=== PATIENT | female | born 1995 | race Caucasian/White ===

== ENCOUNTER 2018-09-10 19:58 | Emergency (ER) | payer OTHER ==
[2018-09-10] MEDS: NORCO 5/325MG TABLET (BULK FOR ED) PO (21:00)
== END 2018-09-10 21:11 | disposition home or self-care (01) ==
LOC: M ED 19:58
DX: S43.52XA Sprain of left acromioclavicular joint, initial encounter (principal); W01.0XXA Fall on same level from slipping, tripping and stumbling without subsequent striking against object, initial encounter; Y92.830 Public park as the place of occurrence of the external cause; Y93.23 Activity, snow (alpine) (downhill) skiing, snowboarding, sledding, tobogganing and snow tubing; Z91.013 Allergy to seafood
CPT/HCPCS: 73060

== ENCOUNTER → 2018-11-26 | Outpatient (REF) | payer OTHER ==
[~2018-11-26] MED LIST: IBUP-1022 PO; NORCOTAB PO
== END ==
LOC: M SFHCLERA 20:44
PROVIDERS: ATTEND Physician Assistant
DX: R50.9 Fever, unspecified (principal)

== ENCOUNTER → 2019-04-17 | Outpatient (CLI) | payer OTHER ==
[~2019-04-17] MED LIST changes: +HYDR-3715 PO; -NORCOTAB PO
[2019-04-17 14:24] LABS: HEPATITIS C VIRUS ABY INDEX 0.1 INDEX (<0.8); HIV 1&2 SCREEN CENTAUR NEGATIVE (NEGATIVE)
[2019-04-17 15:39] LABS: CHLAMYDIA DNA AMPLIFICATION NEGATIVE (NEGATIVE); GC DNA AMPLIFICATION NEGATIVE (NEGATIVE)
== END ==
LOC: M SMT 09:08
PROVIDERS: ATTEND Advanced Practice Midwife
DX: Z34.02 Encounter for supervision of normal first pregnancy, second trimester (principal); Z3A.00 Weeks of gestation of pregnancy not specified
CPT/HCPCS: 36415; 86803; 87389; 87491; 87591; G0123

== ENCOUNTER → 2019-05-13 | Outpatient (CLI) | payer OTHER ==
--- NOTE | 2019-05-13 15:14 | REP ---
REASON: anatomy. Multiple ultrasonographic images of the gravid uterus show a single living intrauterine gestation in variable positions. Doppler interrogation of the heart showed a heart rate of 153 beats per minute. The placenta is anterior and not low lying. The subjective amniotic fluid volume is within normal limits. The cervix measures 4.7 cm in length and is closed. Evaluation of the maternal adnexal spaces showed no abnormalities. BPD 4.3 cm = 19 weeks 1 day HC 16.0 cm = 18 weeks 6 days AC 14.3 cm = 19 weeks 5 days FL 3.1 cm = 19 weeks 4 days The estimated weight is 299 grams which is at the 52nd percentile for a 19 week 6 days gestational age. The structures seen as unremarkable are as follows: Thalami, cavum septum pellucidum, cerebellum, cisterna magna, facial features, kidneys, urinary bladder, stomach, cord insertion, three vessel umbilical cord, four chamber heart, right and left ventricular outflow tracts, and upper and lower extremities. The spine was seen suboptimally due to the lie. IMPRESSION: Single living intrauterine gestation as described above with an estimated gestational age of 19 weeks 1 day via composite criteria and an estimated date of delivery of 10/06/2019. No anomalies were detected, however, I recommend a followup examination for better evaluation of the spine. Electronically Signed by Ozzie Ortiz DO 05/13/2019 04:49 P
== END ==
LOC: M RAD 11:44
PROVIDERS: ATTEND Advanced Practice Midwife
DX: Z34.02 Encounter for supervision of normal first pregnancy, second trimester (principal); Z3A.19 19 weeks gestation of pregnancy

== ENCOUNTER → 2019-05-28 | Outpatient (CLI) | payer OTHER ==
[~2019-05-28] MED LIST changes: +MAGN250T7 PO; +PRENTAB9 PO
--- NOTE | 2019-05-29 11:59 | REP ---
Clinical: Anatomical evaluation. Comparison: 05/13/2019 . Findings: Examination demonstrates a single live intrauterine in cephalic presentation. motion is identified by technologist. Placenta is noted anterior and grade one without evidence for placenta previa or abruption. Amniotic fluid volume is normal. Cervix measures 3.2 cm in length and appears closed. No evidence for nuchal cord. Gestational age by LMP 21 weeks 4 days with RELL 10/04/2019 . Gestational age by current measurements 21 weeks 3 days with RELL 10/05/2019 . FHR equals 144 beats per minute. Estimated weight 429 grams ( 43rd percentile). Anatomical assessment demonstrates normal structures including cranium, choroid plexus, cavum, cerebellum/posterior fossa, lungs, diaphragm, stomach, cord insertion/three-vessel cord, kidneys/bladder, spine, and extremities. Impression: Single live intrauterine in cephalic presentation demonstrating appropriate interval growth. In conjunction with prior examination anatomical assessment is complete and normal. Electronically Signed by Jovan Tran MD 05/29/2019 03:42 A
== END ==
LOC: M RAD 11:37
PROVIDERS: ATTEND Advanced Practice Midwife
DX: Z34.02 Encounter for supervision of normal first pregnancy, second trimester (principal); Z3A.21 21 weeks gestation of pregnancy

== ENCOUNTER → 2019-06-12 | Outpatient (CLI) | payer OTHER ==
[~2019-06-12] MED LIST changes: -MAGN250T7 PO; -PRENTAB9 PO
[2019-06-12 15:30] LABS: HEMATOCRIT 37.1 % (36.0-47.0); HEMOGLOBIN 12.4 g/dl (12.0-15.5); MEAN CORPUSCULAR HEMOGLOBIN 30.8 pg (27.0-33.0); MEAN CORPUSCULAR HGB CONC 33.4 g/dl (32.0-36.5); MEAN CORPUSCULAR VOLUME 92.1 fl (80.0-96.0); PLATELET COUNT, AUTOMATED 361 10^3/uL (150-450); RED BLOOD COUNT 4.03 10^6/uL (4.00-5.40); WHITE BLOOD COUNT 14.2 10^3/uL (4.0-10.0)
== END ==
LOC: M LAB 13:20
PROVIDERS: ATTEND Obstetrics & Gynecology
DX: Z34.82 Encounter for supervision of other normal pregnancy, second trimester (principal); Z36.89 Encounter for other specified antenatal screening

== ENCOUNTER 2019-07-16 21:02 | Outpatient (CLI) | payer OTHER ==
[~2019-07-16] VITALS: Ht 170.2 cm; Wt 68.4 kg
[2019-07-16 21:20] VITALS: BP 107/65
[2019-07-16] MEDS ORDERED: MAGN250T7 PO (21:25)
[2019-07-16] MEDS ORDERED: PRENTAB9 PO (21:25)
[2019-07-16 21:30] VITALS: BP 59/35
[2019-07-16 21:31] VITALS: BP 54/34
[2019-07-16 21:32] VITALS: BP 86/48
[2019-07-16 21:41] VITALS: BP 92/55
== END 2019-07-16 23:45 | disposition home or self-care (01) ==
LOC: M LDO 21:02
PROVIDERS: ATTEND Obstetrics & Gynecology
DX: O26.893 Other specified pregnancy related conditions, third trimester (principal); R10.9 Unspecified abdominal pain; Z3A.28 28 weeks gestation of pregnancy
CPT/HCPCS: 59025; G0378; G0463

== ENCOUNTER → 2019-09-05 | Outpatient (REF) | payer OTHER ==
[~2019-09-05] MED LIST changes: +MAGN250T7 PO; +PRENTAB9 PO
== END ==
LOC: M SFHCWAGY 13:36
PROVIDERS: ATTEND Advanced Practice Midwife
DX: Z36.85 Encounter for antenatal screening for Streptococcus B (principal)

== ENCOUNTER → 2019-09-06 | Outpatient (CLI) | payer OTHER | LOC: M LAB 15:24 | PROVIDERS: ATTEND Advanced Practice Midwife | DX: Z34.93 Encounter for supervision of normal pregnancy, unspecified, third trimester (principal); Z3A.00 Weeks of gestation of pregnancy not specified ==

== ENCOUNTER → 2019-09-06 | Outpatient (CLI) | payer OTHER ==
--- NOTE | 2019-09-06 16:18 | REP ---
OB ULTRASOUND: Real-time sonographic evaluation of the gravid uterus is performed. There is a single living intrauterine gestation. The estimated gestational age is 36 weeks 0 days. EDC 10/04/2019. Today's measurements indicate appropriate growth. BPD 87 mm = 35 weeks 0 days, at the 35th percentile. HC 330 mm = 37 weeks 4 days, at the 75th percentile. AC 326 mm = 36 weeks 4 day, at the 58th percentile. Femur length 67 mm = 34 weeks 4 days, at the 29th percentile. HC/AC ratio 1.01 within normal range. Estimated weight 2811 grams, 50th percentile. Cervix is closed and measures 2.9 cm. Cervix is closed and measures 2.9 cm in length. heart rate 128 beats per minute. Amniotic fluid within normal limits, JAMES 12.7 within normal range of 7.7 to 24.9. SD ratio 2.38 within normal range of 2.0 to 3.0. RI 0.58 slightly below normal range 0.59-0.75. Visualized anatomy today includes lateral ventricles, posterior fossa, upper lip, four chamber heart, left ventricular outflow tract, stomach, cord insertion, three vessel cord, kidneys, bladder and spine which were all grossly unremarkable. position is vertex. Placenta is anterior and grade 2 with no previa or abruption. IMPRESSION: Appropriate growth as above. Electronically Signed by Cruz Newton MD 09/06/2019 04:19 P
== END ==
LOC: M RAD 14:45
PROVIDERS: ATTEND Advanced Practice Midwife
DX: Z34.93 Encounter for supervision of normal pregnancy, unspecified, third trimester (principal); Z3A.36 36 weeks gestation of pregnancy

== ENCOUNTER 2019-09-28 19:32 | Inpatient (IN) | payer OTHER ==
[~2019-09-28] VITALS: Ht 170.2 cm; Wt 74.3 kg
[2019-09-28 19:55] VITALS: BP 109/66
[2019-09-28 20:29] LABS: HEMOGLOBIN 10.8 g/dl (12.0-15.5); MEAN CORPUSCULAR HEMOGLOBIN 25.8 pg (27.0-33.0); MEAN CORPUSCULAR HGB CONC 31.8 g/dl (32.0-36.5); MEAN CORPUSCULAR VOLUME 81.1 fl (80.0-96.0); PLATELET COUNT, AUTOMATED 332 10^3/uL (150-450); RED BLOOD COUNT 4.19 10^6/uL (4.00-5.40); WHITE BLOOD COUNT 14.3 10^3/uL (4.0-10.0)
[2019-09-28 21:11] VITALS: BP 117/78
[2019-09-28] MEDS ORDERED: PENICILLIN G POTASSIUM IV 5 MU in D5W MINI-BAG PLUS 100 ML IV STA (22:11)
--- NOTE | 2019-09-28 22:11 | HPEPDOC ---
Obstetrical History & Physical General Date of Admission Sep 28, 2019 at 19:32 History of Present Illness 24-year-old 1, para 0 who presents at 39 weeks. 1. The estimate gestational age for induction of labor. course is unremarkable. She initiated care first trimesters been appropriate throughout Information Provided By: Patient, Family Age: 24 : 1 Term: 0 Livin Care Care: Good Care Dating Final EDC: Oct 04, 2019 Final EDC for Daily Update: Oct 04, 2019 Final EDC by: 1st trimester (US) LMP: Dec 28, 2018 1st Trimester Date: Sep 28, 2019 Antepartum Course Pre- weight (lbs.): 123 Past Medical History Past Obstetrical History : Past Obstetrical History: Primgravida Past Medical History Medical History Migraines Surgical History: Other Family History Significant Family History: No pertinent family hx Social History Marital Status: * Smoker: former Smoker Alcohol: Denies Allergies Coded Allergies: Shrimp (Verified Allergy, Severe, 09/10/18) Sulfa (Sulfonamide Antibiotics) (Verified Allergy, Severe, 07/16/19) rash, hives sulfamethoxazole (Verified Allergy, Severe, rash, hives, 07/16/19) trimethoprim (Verified Allergy, Severe, rash, hives, 07/16/19) Medications Scheduled Magnesium Oxide (Magnesium) 250 Mg Tablet, 1 TAB PO DAILY No.137/Iron/Folic Acd ( Vitamin Tablet) 1 Each Tablet, 1 TAB PO DAILY Scheduled PRN Hydrocodone/Acetaminophen (Hydrocodone-Acetamin 5-325 mg) 1 Tab Tab, 1 TAB PO Q6H PRN for PAIN Physical Examination Physical Examination GENERAL: Alert and oriented times three. BREAST: . ABDOMEN: Gravid and non-tender to touch. FETUS: Is vertex (VTX) by sterile vaginal examination (SVE), fetus is vertex (V TX) by Herbert. HEART RATE: Regular rate and rhythm. LUNGS: Clear to auscultation (CTA). EXTREMITIES: No edema. No clonus. Deep tendon reflexes (DTRs) + . Vital Signs/I&O Vital Signs Date Time Temp Pulse Resp B/P (MAP) Pulse Ox O2 Delivery O2 Flow Rate FiO2 09/28/19 21:11 68 117/78 (91) 09/28/19 19:55 97.6 Laboratory Data 24H LABS Laboratory Tests 2 09/28/19 20:20: Nucleated Red Blood Cells % (auto) 0.0, Hepatitis B Surface Antigen (Rapid) NEGATIVEL CBC/BMP Laboratory Tests 09/28/19 20:20 Pertinent Laboratoy Data Blood Type: O+ RBC Antibody Screen: Negative HIV: Negative Hepatitis B: Negative Hepatitis C: Negative Rapid Plasma Reagin: Nonreactive Rubella: Immune Varicella: Nonreactive Chlamydia/Gonorrhea: Negative Group B Streptococcus: Positive Cystic Fibrosis: Negative Anatomy Ultrasound Placenta Location: Anterior Normal Anatomy: No Vaginal Examination Dilation: 1cm Effacement: 70% Station: -2 Cervical Consistency: Medium Cervical Position: Middle Presentation: Cephalic presentation Assessment Heart Rate (FHR): 120 Variability: Moderate Accelerations: Positive Tocometer Contractions: Yes Frequency: irregular Assessment/Plan Assessment 23-year-old (G) 1 para (P)0 --- at 39+1 weeks by first trimester ultrasound. Presents to Labor and Delivery (L&D) . Plan Admit and orient. Patient's been thoroughly counseled regards, induction of labor. Discussed medication procedures performed as well as verbally consented her for emergency surgery. Blood products anesthesia. She desires to proceed with induction of labor, we'll initiate her induction of labor with 50 g of misoprostol Diet: Regular. Group B Streptococcus (GBS) positive. Labs and intravenous (IV) per unit protocol. Counseled on Pitocin and induction of labor (IOL). Saline lock Anticipate normal spontaneous delivery (). C-S as appropriate. ABIMAEL MCCULLOUGH MD. Sep 28, 2019 22:11
[2019-09-28] MEDS: miSOPROStol 50 MCG 1/2 TAB (S0191) PO SCH (22:15)
[2019-09-28] MEDS ORDERED: miSOPROStol 50 MCG 1/2 TAB (S0191) As Ordered ONE (22:17)
[2019-09-28] MEDS ORDERED: PROMETHAZINE INJ 25 MG/ML VIAL (J2550) IV PRN (22:30)
[2019-09-28] MEDS ORDERED: BUTORPHANOL 2 MG/ML INJ (J0595) IV ONE (22:30)
[2019-09-28 23:23] VITALS: BP 109/67
[2019-09-29] VITALS (39 sets, daily range): BP systolic 93–133; BP diastolic 52–93
[2019-09-29] MEDS: miSOPROStol 50 MCG 1/2 TAB (S0191) PO SCH (04:31)
[2019-09-29] MEDS ORDERED: OXYTOCIN DRIP 30 UNITS in IV 1 EA IV SCH (10:30)
[2019-09-29] MEDS: LR 1,000 ML IV SCH ×2 (10:39→16:58)
--- NOTE | 2019-09-29 11:55 | IPNPDOC ---
Obstetrical Progress Note Date of Service Sep 29, 2019 Subjective Doing well w/o any overnight issues. had 2 doses of cytotec. pain is controlled. Objective Vital Signs Date Time Temp Pulse Resp B/P (MAP) Pulse Ox O2 Delivery O2 Flow Rate FiO2 09/29/19 06:36 97.6 62 103/57 (72) Assessment Variability: Moderate Accelerations: Positive Heart Rate Tracing: Category I Sterile Vaginal Examination Dilation: 2cm Effacement (%): 70% Station: -2 Cervical Consistency: Soft Cervical Position: Anterior Postion/Presentation: Cephalic presentation Assessment and Plan Age: 24 : 1 EGA at Admission: 39 Status: Reassuring Anticipate: Vaginal Delivery Additional Comments plan to start pitocin ABIMAEL MCCULLOUGH MD. Sep 29, 2019 11:54
[2019-09-29] MEDS ORDERED: PENICILLIN G POTASSIUM IV 5 MU in D5W MINI-BAG PLUS 100 ML IV STA (17:43)
--- NOTE | 2019-09-29 18:02 | IPNPDOC ---
Obstetrical Progress Note Date of Service Sep 29, 2019 Subjective Doing well without complaints Objective Vital Signs Date Time Temp Pulse Resp B/P (MAP) Pulse Ox O2 Delivery O2 Flow Rate FiO2 09/29/19 06:36 97.6 62 103/57 (72) Assessment Heart Rate (FHR): 120 Variability: Moderate Accelerations: Positive Heart Rate Tracing: Category I Tocometer Contractions: Yes Frequency: regular Sterile Vaginal Examination Dilation: 2cm Effacement (%): 70% Station: -2 Assessment and Plan Age: 24 : 1 Status: Reassuring Group B Streptococcus: Positive Anticipate: Vaginal Delivery Additional Comments Cook's catheter placed 60/40. Continue to increase Pitocin Epidural at patient's request ABIMAEL MCCULLOUGH MD. Sep 29, 2019 18:02
[2019-09-29] MEDS ORDERED: BUTORPHANOL 2 MG/ML INJ (J0595) IV ONE (19:00)
[2019-09-29] MEDS: PENICILLIN G POTASSIUM IV 2.5 MU in IV 1 EA IV SCH (21:52)
[2019-09-29] MEDS ORDERED: FENTANYL 2MCG/ML ROPIVACAINE 0.2% IN 0.9% NACL 100ML IVBAG As Ordered ONE (22:44)
[2019-09-29] MEDS ORDERED: ePHEDrine SULFATE 25 MG/5 ML(5MG/ML) SYRINGE IV PRN (23:05)
[2019-09-29] MEDS ORDERED: EPIDURAL COMMENT XX SCH (23:05)
[2019-09-29] MEDS ORDERED: FENTANYL/ROPIVACAINE/NACL BAG 100 ML EPIDURAL SCH (23:05)
[2019-09-29] MEDS ORDERED: ONDANSETRON 4MG/2ML VIAL (J2405) IV PRN (23:05)
[2019-09-29] MEDS ORDERED: NALOXONE INJ 0.4 MG/1 ML VIAL (J2310) IV PRN (23:05)
[2019-09-29] MEDS ORDERED: diphenhydrAMINE INJ 50MG/ML VIAL (J1200) IV PRN (23:05)
[2019-09-29] MEDS ORDERED: REFRIGERATOR IV KEYS XX PRN (23:05)
[2019-09-29] MEDS ORDERED: EPIDURAL/PCA KEYS XX PRN (23:05)
[2019-09-30] VITALS (49 sets, daily range): BP systolic 89–115; BP diastolic 50–70
[2019-09-30] MEDS: PENICILLIN G POTASSIUM IV 2.5 MU in IV 1 EA IV SCH ×3 (02:01→10:17)
--- NOTE | 2019-09-30 05:48 | IPNPDOC ---
Obstetrical Progress Note Date of Service Sep 30, 2019 Subjective Doing well and feeling comfortable following her epidural Objective Vital Signs Date Time Temp Pulse Resp B/P (MAP) Pulse Ox O2 Delivery O2 Flow Rate FiO2 09/30/19 02:00 98.1 95 100/51 (67) 09/29/19 19:30 20 Room Air Assessment Variability: Moderate Accelerations: Positive Decelerations: Variable Tocometer Contractions: Yes Frequency: regular Sterile Vaginal Examination Dilation: 6 cm Effacement (%): 70% Station: -1 Postion/Presentation: Cephalic presentation Assessment and Plan Age: 24 : 1 EGA at Admission: 39 Group B Streptococcus: Positive ABIMAEL MCCULLOUGH MD. Sep 30, 2019 05:48
--- NOTE | 2019-09-30 08:18 | IPNPDOC ---
Obstetrical Progress Note Date of Service Sep 30, 2019 Subjective Patient reports she is doing well and her epidural is working well. Objective Vital Signs Date Time Temp Pulse Resp B/P (MAP) Pulse Ox O2 Delivery O2 Flow Rate FiO2 09/30/19 07:22 99.3 09/30/19 07:13 82 18 96/50 (65) 09/29/19 19:30 Room Air Assessment Heart Rate (FHR): 140 Variability: Moderate Accelerations: Positive Decelerations: Early Heart Rate Tracing: Category I Tocometer Contractions: Yes Frequency: regular, other (every 2 to 4 minutes) Sterile Vaginal Examination Dilation: 8 cm Effacement (%): 100% Station: 0 Postion/Presentation: Cephalic presentation Assessment and Plan Age: 24 : 1 Term: 0 Pre-term: 0 Abortions: 0 Livin EGA at Admission: 39.3 Status: Reassuring Group B Streptococcus: Positive Anticipate: Vaginal Delivery Additional Comments IV Pitocin is at 4 mu/min. ROCK POPE CNM Sep 30, 2019 08:18
[2019-09-30] MEDS: LR 1,000 ML IV SCH (10:17)
[2019-09-30] MEDS ORDERED: OXYTOCIN DRIP 30 UNITS in IV 1 EA IV SCH (12:55)
[2019-09-30] MEDS ORDERED: DOCUSATE SODIUM 100 MG CAP PO PRN (13:00)
[2019-09-30] MEDS ORDERED: MEASLES,MUMPS,RUBELLA VACCINE INJ (MMR-II) (90707) SC SCH (13:00)
[2019-09-30] MEDS ORDERED: METHYLERGONOVINE MALEATE 0.2 MG TAB PO PRN (13:00)
[2019-09-30] MEDS ORDERED: ACETAMINOPHEN TAB 650MG DOSE (2X325MG) PO PRN (13:00)
[2019-09-30] MEDS ORDERED: ANUSOL HC CREAM 30GM TOP PRN (13:00)
[2019-09-30] MEDS ORDERED: RHOGAM 300 MCG (1500 IU) INJ (J2790) IM SCH (13:00)
[2019-09-30] MEDS ORDERED: ACETAMINOPHEN 500 MG TAB PO PRN (13:00)
[2019-09-30] MEDS ORDERED: IBUPROFEN 600 MG TAB PO PRN (13:00)
--- NOTE | 2019-09-30 13:06 | DNPDOC ---
[facility] Delivery Note Delivery Note DATE OF DELIVERY: 09/30/19 at 1220 PREDELIVERY DIAGNOSIS: 39-3/7 weeks' gestation and labor. POST DELIVERY DIAGNOSIS: Delivered. PROCEDURE: Spontaneous vaginal delivery. FURNITURE MOVER HELPER: Rock Deleon CNM, DORA ANESTHESIA: epidural. ESTIMATED BLOOD LOSS: 400 mL. FINDINGS: 7 pounds 12 ounces; 3510 grams; male , Score 8/9. DELIVERY SUMMARY: Patient is a 24-year-old who is now a who presented for an elective IOL. She received an epidural for pain management. The patient progressed to fully dilated at 1125 and pushed to a living Male in the OA position with restitution to ROT. The anterior shoulder delivered with ease and the corpus immediately followed. There was a right hand that delivered with the posterior shoulder. The baby was placed on the maternal abdomen active and crying with stimulation. The cord was clamped x2 after pulsation ceased and cut by the FOB. The placenta delivered spontaneously and intact at 1226. Uterine hemostasis was achieved via rapid infusion of IV Pitocin and fundal massage. The perineum, vagina, and cervix was inspected and found to have bilateral labial lacerations. The right side was repaired with a 4.0 Vicryl Rapid RB-1 and a single interrupted suture was placed in the left. Mom plans for breast feed and they are naming their son Gary. Both mom and baby are in stable condition. All counts on instruments and sutures are correct. ROCK DELEON CNM Sep 30, 2019 13:06
[2019-09-30] MEDS: IBUPROFEN 800 MG TAB PO PRN (14:08)
[2019-09-30] MEDS: DIBUCAINE 1% OINTMENT 30GM TOP PRN (15:44)
[2019-10-01] MEDS: IBUPROFEN 800 MG TAB PO PRN ×2 (03:16→18:22)
[2019-10-01 05:34] VITALS: BP 110/59
--- NOTE | 2019-10-01 08:15 | IPNPDOC ---
Progress Note Date of Service: Oct 01, 2019 Day#: 1 Progress Note SUBJECT: She has been ambulating, voiding spontaneously without issue and tole rating regular diet. Breast feeding without issue. has no complaints OBJECTIVE: VITAL SIGNS: Within normal limits, afebrile. Alert and oriented times three. Breath sounds clear to auscultation. Heart rate: Regular rate and rhythm, no murmurs, rubs or gallops. Abdomen: Fundus firm at U-1. Soft, NTTP. Moderate lochia. ASSESSMENT: Day 1 PLAN: 1. Anticipate discharge to home tomorrow. 2. Continue with supportive nursing care. VS, I&O, 24H, Fishbone Vital Signs/I&O Vital Signs Date Time Temp Pulse Resp B/P (MAP) Pulse Ox O2 Delivery O2 Flow Rate FiO2 10/01/19 05:34 98.2 71 18 110/59 (76) 99 09/29/19 19:30 Room Air I&O- Last 24 Hours up to 6 AM 10/01/19 06:00 Intake Total 7776.45 ml Output Total 2200 ml Balance 5576.45 ml ROCK POPE CNM Oct 01, 2019 08:15
[2019-10-01] MEDS: PRENATAL VITAMINS CHEWABLE TABLET PO SCH (08:29)
[2019-10-01 17:51] VITALS: BP 107/55
[2019-10-02 06:00] VITALS: BP 112/55
--- NOTE | 2019-10-02 06:55 | IPNPDOC ---
Text Note Date of Service The patient was seen on 10/02/19. NOTE Day 2 S/p vaginal delivery; uncomplicated S:Patient is a 24-year-old G1 now P1 female who is status post induced vaginal delivery. Pain is well-controlled at this time. Patient has minimal bleeding. Bowel and bladder working without difficulty. Patient is tolerating by mouth intake. Patient reports minimal bleeding at this time. O: vitals: See below Gen.: Alert and oriented female patient who was laying in bed when I walked in. Patient was no acute distress. Abd: Uterine fundus 1 cm below the umbilicus. Uterus is firm Ext: Trace pitting edema over the dunn bilaterally A/P: 24 yo G 1 now P 1001. day 2 status post induced vaginal delivery Hemodynamically stable, afebrile, good pain control. Recovering well. -Routine care and advancement. -Anticipate discharge today VS,Fishbone, I+O VS, Fishbone, I+O Vital Signs Date Time Temp Pulse Resp B/P (MAP) Pulse Ox O2 Delivery O2 Flow Rate FiO2 10/02/19 06:00 97.8 64 18 112/55 (74) 99 Room Air I&O- Last 24 Hours up to 6 AM 10/02/19 06:00 Intake Total 500 ml Balance 500 ml GME ATTESTATION GME ATTESTATION My faculty preceptor for this patient encounter was physically present during the encounter and was fully available. All aspects of the patient interview, examination, medical decision making process, and medical care plan development were reviewed and approved by the faculty preceptor. The faculty preceptor is aware and concurs with the plan as stated in the body of this note and will attest to such by his/her cosignature. CHIOMA GONCALVES DO Oct 02, 2019 06:55
[2019-10-02] MEDS: PRENATAL VITAMINS CHEWABLE TABLET PO SCH (08:08)
[2019-10-02] MEDS: DIBUCAINE 1% OINTMENT 30GM TOP PRN (11:28)
== END 2019-10-02 13:45 | disposition home or self-care (01) | DRG 807 ==
LOC: M LDI 19:32 → M OBS 09-30 15:23
PROVIDERS: ADMIT Obstetrics & Gynecology; ATTEND Obstetrics & Gynecology
PROC: 3E0DXGC Introduction of Other Therapeutic Substance into Mouth and Pharynx, External Approach (ICD-10-PCS; 2019-09-28)
PROC: 3E033VJ Introduction of Other Hormone into Peripheral Vein, Percutaneous Approach (ICD-10-PCS; 2019-09-28)
PROC: 10E0XZZ Delivery of Products of Conception, External Approach (ICD-10-PCS; principal; 2019-09-30)
PROC: 0HQ9XZZ Repair Perineum Skin, External Approach (ICD-10-PCS; 2019-09-30)
DX: O99.824 Streptococcus B carrier state complicating childbirth (principal); Z37.0 Single live birth; Z3A.39 39 weeks gestation of pregnancy; O70.0 First degree perineal laceration during delivery

== ENCOUNTER → 2020-08-25 | Outpatient (CLI) | payer SELFPAY | LOC: M LABSMTC 13:07 | PROVIDERS: ATTEND Pediatrics | DX: Z20.828 Contact with and (suspected) exposure to other viral communicable diseases (principal) ==